=== PATIENT | female | born 1995 | race Caucasian/White ===

== ENCOUNTER 2019-11-29 06:03 | Inpatient (IN) ==
[2019-11-29] MEDS ORDERED: ONDANSETRON 4 MG/2 ML VIAL IV PRN ×2 (06:19→19:48)
[2019-11-29] MEDS ORDERED: MEPERIDINE 50 MG/1 ML VIAL IV PRN (06:19)
[2019-11-29] MEDS ORDERED: OXYTOCIN/LR 20 UNIT/1,000 ML BAG IV SCH (06:30)
[2019-11-29 06:36] LABS: Basophils # 0.1 10*3/uL (0.0-0.2); Basophils % 0.6 % (0.0-0.8); Eosinophils # 0.2 10*3/uL (0.0-0.87); Eosinophils % 1.7 % (0.00-10.9); Hematocrit 37.4 VOL% (35.7-47.0); Hemoglobin 11.6 GM/DL (12.0-16.0); Immature Granulocytes % 0.6 %; Immature Granulocytes Absolute 0.07 #; Lymphocytes # 3.8 10*3/uL (1.4-4.0); Lymphocytes % 30.4 % (21.3-54.2); Mean Platelet Volume 10.3 FL (9.6-12.0); Neutrophils % 58.7 % (38.7-73.9); Platelet Count 347 T/CUMM (130-400); Red Blood Count 4.56 MC/CUMM (3.8-5.5); Red Cell Distribution Width 14.7 % (9.3-17.3); White Blood Count 12.6 T/CUMM (4-12)
[2019-11-29] MEDS: LACTATED RINGERS 1,000 ML IV SCH ×2 (06:40→14:23)
[2019-11-29 06:53] LABS: Alanine Aminotransferase 17 U/L (13-56); Albumin 2.6 G/DL (3.4-5.0); Alkaline Phosphatase 151 U/L (45-117); Aspartate Amino Transferase 9 U/L (0-37); Bilirubin,Total < 0.39 MG/DL (0.2-1.0); Blood Urea Nitrogen 8 MG/DL (7-18); Estimated Glom Filtration Rate 173 ML/MIN; Glucose 115 MG/DL (74-106); Total Protein 6.7 G/DL (6.4-8.3)
[2019-11-29] MEDS ORDERED: PROMETHAZINE 25 MG/1 ML VIAL IM ONE (07:26)
[2019-11-29] MEDS ORDERED: CITRIC ACID/SODIUM CITRATE 30 ML UDCUP PO ONE (07:26)
[2019-11-29] MEDS ORDERED: hydrOXYzine HCL 25 MG/1 ML VIAL IM PRN (07:26)
[2019-11-29] MEDS ORDERED: diphenhydrAMINE 50 MG/1 ML VIAL IV PRN ×2 (07:26)
[2019-11-29] MEDS ORDERED: ePHEDrine 50 MG/ML AMP IV PRN (07:26)
[2019-11-29] MEDS ORDERED: NALOXONE 0.4 MG/ML VIAL IV PRN (07:26)
[2019-11-29] MEDS ORDERED: LACTATED RINGERS 1,000 ML IV ONE ×2 (07:26→19:39)
[2019-11-29] MEDS ORDERED: FAMOTIDINE 20 MG/2 ML VIAL IV ONE (07:26)
[2019-11-29] MEDS: fentaNYL 2 MCG/ROPIV 0.2% EPID 100 ML EPIDURAL SCH ×2 (08:10→14:38)
[2019-11-29 09:32] LABS: Apearance,Urine CLEAR (Clear); Bacteria,Urine Occasional /HPF (Few); Bilirubin,Urine Negative (Negative); Blood, Urine Small mg/dL (Negative); Glucose,Urine (UA) Negative (Negative); Ketones,Urine Negative (Negative); Mucus,Urine Occasional /LPF (Occasional); Nitrite,Urine Negative (Negative); Protein,Urine 30 MG/DL; RBC,Urine 24 /HPF (0-4); Squamous Epithelial Cell,Urine Occasional /HPF (0-10); Urine Color Yellow (Yellow); Urine Specific Gravity 1.026 (1.001-1.035); Urine Urobilinogen < 2.0 EU/DL (0.2-1.0); WBC,Urine <1 /HPF (0-6)
[2019-11-29] MEDS ORDERED: OXYTOCIN 10 UNIT/ML VIAL ONE (18:01)
[2019-11-29] MEDS ORDERED: OXYTOCIN/LR 30 UNIT/1,000 ML BAG IV ONE (18:02)
[2019-11-29] MEDS ORDERED: OXYTOCIN 10 UNIT/ML VIAL IM ONE (18:02)
[2019-11-29] MEDS ORDERED: CLINDAMYCIN INJ 900 MG in PREMIX 1 EACH IV ONE (18:02)
[2019-11-29] MEDS ORDERED: KETOROLAC 30 MG/1 ML VIAL ONE (19:39)
[2019-11-29] MEDS ORDERED: LIDOCAINE MPF 2% /EPI 20 ML VIAL ONE (19:39)
[2019-11-29] MEDS ORDERED: MIDAZOLAM 2 MG/2 ML VIAL ONE (19:39)
[2019-11-29] MEDS ORDERED: ONDANSETRON 4 MG/2 ML VIAL ONE (19:39)
[2019-11-29] MEDS ORDERED: ESMOLOL 100 MG/10 ML VIAL IV ONE (19:39)
[2019-11-29 19:45] LABS: Cord Arterial Blood HCO3 21.2 MMOL/L
[2019-11-29 19:48] LABS: Cord Venous Blood HCO3 23.9 MMOL/L; Cord Venous Blood PCO2 39.3 MMHG; Cord Venous Blood PO2 41.3
[2019-11-29] MEDS ORDERED: ACETAMINOPHEN 325 MG TABLET PO PRN (19:48)
[2019-11-29] MEDS ORDERED: OXYTOCIN/LR 20 UNIT/1,000 ML BAG IV ONE (19:48)
[2019-11-29] MEDS ORDERED: RHO(D) IMMUNE GLOBULIN 300 MCG SYRINGE IM ONE (19:48)
[2019-11-29] MEDS ORDERED: LACTATED RINGERS 1,000 ML IV SCH (20:00)
[2019-11-29] MEDS: IBUPROFEN 800 MG TABLET PO PRN (20:29)
[2019-11-30] MEDS: CLINDAMYCIN INJ 900 MG in PREMIX 1 EACH IV SCH ×2 (02:30→11:38)
[2019-11-30] MEDS: IBUPROFEN 800 MG TABLET PO PRN ×3 (04:03→20:15)
[2019-11-30] MEDS: SIMETHICONE CHEW 80 MG TABLET PO PRN ×2 (04:04→15:13)
[2019-11-30] MEDS: BENZOCAINE/MENTHOL LOZENGE 18/BOX PO PRN ×2 (04:16→17:23)
[2019-11-30] MEDS ORDERED: MEPERIDINE 25 MG/1 ML VIAL IV ONE (05:19)
[2019-11-30] MEDS ORDERED: MEPERIDINE 25 MG/1 ML VIAL ONE (05:21)
[2019-11-30 05:56] LABS: Basophils % 0.2 % (0.0-0.8); Eosinophils # 0.1 10*3/uL (0.0-0.87); Eosinophils % 0.5 % (0.00-10.9); Hematocrit 33.4 VOL% (35.7-47.0); Hemoglobin 10.3 GM/DL (12.0-16.0); Immature Granulocytes % 0.4 %; Immature Granulocytes Absolute 0.05 #; Lymphocytes # 1.4 10*3/uL (1.4-4.0); Lymphocytes % 11.6 % (21.3-54.2); Mean Corpuscular HGB Conc 30.8 GM/DL (32-36); Mean Corpuscular Volume 81.1 FL (87-102); Mean Platelet Volume 10.9 FL (9.6-12.0); Monocytes % 8.9 % (1.7-12.7); Neutrophils % 78.4 % (38.7-73.9); Platelet Count 278 T/CUMM (130-400); Red Blood Count 4.12 MC/CUMM (3.8-5.5); Red Cell Distribution Width 14.7 % (9.3-17.3); White Blood Count 12.4 T/CUMM (4-12)
[2019-11-30] MEDS: MULTIVITAMIN (PRENATAL) TABLET PO SCH (08:33)
[2019-11-30] MEDS: DOCUSATE SODIUM 100 MG CAPSULE PO SCH ×2 (08:33→20:15)
[2019-11-30] MEDS: MAGNESIUM HYDROXIDE SUSP 30 ML UDCUP PO PRN ×2 (08:35→20:15)
[2019-11-30] MEDS: oxyCODONE/ACETAMINOPHEN 5-325 MG TABLET PO PRN ×3 (11:31→23:10)
[2019-11-30] MEDS: LORazepam 1 MG TABLET PO PRN ×2 (12:12→17:20)
[2019-11-30] MEDS: KETOROLAC 30 MG/1 ML VIAL IV PRN (15:20)
[2019-11-30 16:01] LABS: Barbiturates Screen,Urine Negative (Negative); Benzodiazepines Screen,Urine Negative (Negative); Cannabinoid Screen,Urine Negative (Negative); Opiate Screen,Urine Negative (Negative); Phencyclidine Screen,Urine Negative (Negative)
[2019-12-01] MEDS: LORazepam 1 MG TABLET PO PRN ×2 (00:40→05:20)
[2019-12-01] MEDS: METOCLOPRAMIDE 10 MG TABLET PO SCH ×2 (00:41→07:15)
[2019-12-01] MEDS: oxyCODONE/ACETAMINOPHEN 5-325 MG TABLET PO PRN ×2 (04:39→11:15)
[2019-12-01] MEDS: IBUPROFEN 800 MG TABLET PO PRN (04:40)
[2019-12-01] MEDS ORDERED: MAGNESIUM CITRATE 300 ML BOTTLE PO PRN (06:30)
[2019-12-01 07:30] VITALS: BP 101/50
[2019-12-01] MEDS: DOCUSATE SODIUM 100 MG CAPSULE PO SCH (09:27)
[2019-12-01] MEDS: MULTIVITAMIN (PRENATAL) TABLET PO SCH ×2 (09:27→09:50)
[2019-12-01] MEDS: KETOROLAC 30 MG/1 ML VIAL IV PRN ×2 (09:50→09:52)
== END 2019-12-01 14:10 | disposition home or self-care (01) | DRG 540 ==
LOC: N.LDOUT 06:03 → N.LD 06:15 → N.OB 22:23
PROVIDERS: ADMIT Obstetrics & Gynecology; ATTEND Obstetrics & Gynecology
PROC: LDCSECT (ICD-10-PCS; 2019-11-29 18:30)

== ENCOUNTER 2019-12-11 18:54 | Observation (INO) ==
[2019-12-11 19:38] LABS: Basophils # 0.1 10*3/uL (0.0-0.2); Basophils % 0.7 % (0.0-0.8); Eosinophils # 0.2 10*3/uL (0.0-0.87); Eosinophils % 1.7 % (0.00-10.9); Hematocrit 39.6 VOL% (35.7-47.0); Hemoglobin 12.1 GM/DL (12.0-16.0); Immature Granulocytes % 1.9 %; Immature Granulocytes Absolute 0.25 #; Lymphocytes # 3.6 10*3/uL (1.4-4.0); Lymphocytes % 27.1 % (21.3-54.2); Mean Corpuscular HGB Conc 30.6 GM/DL (32-36); Mean Corpuscular Volume 80.8 FL (87-102); Mean Platelet Volume 9.6 FL (9.6-12.0); Monocytes % 6.3 % (1.7-12.7); Neutrophils % 62.3 % (38.7-73.9); Platelet Count 533 T/CUMM (130-400); Red Cell Distribution Width 14.3 % (9.3-17.3); White Blood Count 13.4 T/CUMM (4-12)
[2019-12-11 19:45] LABS: Alanine Aminotransferase 28 U/L (13-56); Albumin 2.9 G/DL (3.4-5.0); Alkaline Phosphatase 108 U/L (45-117); Aspartate Amino Transferase 20 U/L (0-37); Bilirubin,Total < 0.39 MG/DL (0.2-1.0); Blood Urea Nitrogen 15 MG/DL (7-18); Calcium 8.3 MG/DL (8.5-10.1); Estimated Glom Filtration Rate 148 ML/MIN; Glucose 87 MG/DL (74-106); Osmolality,Calculated 278.4 MOS/KG (273-304); Total Protein 7.2 G/DL (6.4-8.3)
[2019-12-11] MEDS ORDERED: HYDROmorphone 2 MG/1 ML VIAL IV STA (22:40)
[2019-12-11] MEDS ORDERED: ONDANSETRON 4 MG/2 ML VIAL IV STA (22:40)
[2019-12-11 23:31] LABS: Apearance,Urine Slightly Hazy (Clear); Barbiturates Screen,Urine Negative (Negative); Benzodiazepines Screen,Urine Negative (Negative); Bilirubin,Urine Negative (Negative); Blood, Urine Large mg/dL (Negative); Cannabinoid Screen,Urine Negative (Negative); Glucose,Urine (UA) Negative (Negative); Ketones,Urine Negative (Negative); Mucus,Urine Occasional /LPF (Occasional); Nitrite,Urine Negative (Negative); Opiate Screen,Urine Negative (Negative); Phencyclidine Screen,Urine Negative (Negative); Protein,Urine Negative; RBC,Urine 8 /HPF (0-4); Squamous Epithelial Cell,Urine Occasional /HPF (0-10); Urine Color Yellow (Yellow); Urine Specific Gravity 1.017 (1.001-1.035); Urine Urobilinogen < 2.0 EU/DL (0.2-1.0); WBC,Urine 51 /HPF (0-6)
[2019-12-11] MEDS ORDERED: cefTRIAXone 1,000 MG in SODIUM CHLORIDE 0.9% 100 ML IV STA (23:49)
[2019-12-12] MEDS ORDERED: cefTRIAXone 1,000 MG in SYRINGE 1 EACH IV SCH
[2019-12-12] MEDS ORDERED: SODIUM CHLORIDE 0.9% 1,000 ML IV SCH (01:05)
[2019-12-12] MEDS ORDERED: LACTATED RINGERS 1,000 ML IV SCH (01:05)
[2019-12-12] MEDS ORDERED: MAGNESIUM HYDROXIDE SUSP 30 ML UDCUP PO PRN (01:05)
[2019-12-12] MEDS ORDERED: ACETAMINOPHEN 325 MG TABLET PO PRN (01:05)
[2019-12-12] MEDS ORDERED: ONDANSETRON 4 MG/2 ML VIAL IV PRN (01:05)
[2019-12-12] MEDS ORDERED: BISACODYL 10 MG SUPP RECTAL PRN (01:05)
[2019-12-12] MEDS ORDERED: IBUPROFEN 800 MG TABLET PO PRN (01:05)
[2019-12-12 02:45] VITALS: BP 126/82
[2019-12-12] MEDS ORDERED: DOCUSATE SODIUM 100 MG CAPSULE PO SCH (09:00)
[2019-12-13] MEDS ORDERED: cefTRIAXone 1,000 MG in SYRINGE 1 EACH IV SCH
== END 2019-12-12 04:01 | disposition left against medical advice (07) ==
LOC: N.EDINP 18:54 → N.ED 18:54 → N.EDINP 12-12 00:55 → N.3E 12-12 01:05
PROVIDERS: ADMIT Obstetrics & Gynecology; ATTEND Obstetrics & Gynecology

== ENCOUNTER 2022-04-28 09:45 | Inpatient (IN) ==
[2022-04-28] MEDS ORDERED: METHYLERGONOVINE 0.2 MG/1 ML AMP IM PRN (10:00)
[2022-04-28] MEDS ORDERED: miSOPROStoL 200 MCG TABLET RECTAL PRN (10:00)
[2022-04-28] MEDS ORDERED: CARBOPROST TROMETHAMINE 250 MCG/ML AMP IM PRN (10:00)
[2022-04-28] MEDS ORDERED: TRANEXAMIC ACID 1,000 MG in SODIUM CHLORIDE 0.9% 100 ML IV PRN (10:00)
[2022-04-28] MEDS ORDERED: LACTATED RINGERS 1,000 ML IV SCH ×2 (10:00→14:30)
[2022-04-28] MEDS ORDERED: OXYTOCIN/LR 20 UNIT/1,000 ML BAG IV ONE ×2 (10:00→14:28)
[2022-04-28] MEDS ORDERED: CITRIC ACID/SODIUM CITRATE 30 ML UDCUP PO PRN (10:00)
[2022-04-28] MEDS ORDERED: CLINDAMYCIN INJ 900 MG/50 ML PREMIX IV ONE (10:00)
[2022-04-28] MEDS ORDERED: FAMOTIDINE 20 MG/2 ML VIAL IV PRN (10:00)
[2022-04-28] MEDS ORDERED: OXYTOCIN 10 UNIT/ML VIAL IM PRN (10:02)
[2022-04-28] MEDS ORDERED: OXYTOCIN/LR 30 UNIT/1,000 ML BAG IV PRN (10:02)
[2022-04-28] MEDS ORDERED: LACTATED RINGERS 1,000 ML IV ONE (10:03)
[2022-04-28 10:41] LABS: Basophils % 0.3 % (0.0-0.8); Eosinophils # 0.1 10*3/uL (0.0-0.87); Eosinophils % 0.5 % (0.00-10.9); Hematocrit 35.7 VOL% (35.7-47.0); Immature Granulocytes % 0.5 %; Immature Granulocytes Absolute 0.06 #; Lymphocytes # 2.3 10*3/uL (1.4-4.0); Lymphocytes % 21.4 % (21.3-54.2); Mean Corpuscular HGB Conc 30.8 GM/DL (32-36); Mean Corpuscular Volume 77.1 FL (87-102); Mean Platelet Volume 10.4 FL (9.6-12.0); Monocytes # 0.9 10*3/uL (0.11-0.8); Monocytes % 8.2 % (1.7-12.7); Neutrophils % 69.1 % (38.7-73.9); Platelet Count 246 T/CUMM (130-400); Red Blood Count 4.63 MC/CUMM (3.8-5.5); Red Cell Distribution Width 14.3 % (9.3-17.3); White Blood Count 10.9 T/CUMM (4-12)
[2022-04-28 11:05] LABS: Alanine Aminotransferase 16 U/L (13-56); Albumin 2.5 G/DL (3.4-5.0); Alkaline Phosphatase 109 U/L (45-117); Aspartate Amino Transferase 12 U/L (0-37); Bilirubin,Total < 0.39 MG/DL (0.20-1.00); Blood Urea Nitrogen 11 MG/DL (7-18); Calcium 8.6 MG/DL (8.5-10.1); Carbon Dioxide 24 MMOL/L (21-32); Chloride 108 MMOL/L (98-107); Glucose 96 MG/DL (74-106); Osmolality,Calculated 273.7 MOS/KG (273-304); Sodium 138 MMOL/L (136-145); Total Protein 6.7 G/DL (6.4-8.2)
[2022-04-28] MEDS ORDERED: buprenorphine HCL 0.3 MG/ML VIAL ONE (13:19)
[2022-04-28] MEDS ORDERED: BUPIVACAINE SPINAL 0.75% 2 ML AMP SPINAL ONE (13:19)
[2022-04-28] MEDS ORDERED: ONDANSETRON 4 MG/2 ML VIAL ONE (13:19)
[2022-04-28] MEDS ORDERED: PHENYLEPHRINE 1 MG/10 ML SYRINGE IV ONE (13:50)
[2022-04-28] MEDS ORDERED: MIDAZOLAM 2 MG/2 ML VIAL ONE (13:57)
[2022-04-28] MEDS ORDERED: LIDOCAINE 2% 5 ML VIAL ONE (14:08)
[2022-04-28] MEDS ORDERED: propofoL 200 MG/20 ML VIAL IV ONE (14:08)
[2022-04-28 14:22] LABS: Cord Venous Blood HCO3 23.3 MMOL/L; Cord Venous Blood PCO2 59.1 MMHG; Cord Venous Blood PO2 < 17
[2022-04-28] MEDS ORDERED: MAGNESIUM HYDROXIDE SUSP 30 ML UDCUP PO PRN (14:28)
[2022-04-28] MEDS ORDERED: ONDANSETRON 4 MG/2 ML VIAL IV PRN (14:28)
[2022-04-28] MEDS ORDERED: ACETAMINOPHEN 325 MG TABLET PO PRN (14:28)
[2022-04-28] MEDS ORDERED: RHO(D) IMMUNE GLOBULIN 300 MCG SYRINGE IM ONE (14:28)
[2022-04-28 14:51] LABS: Mucus,Urine Occasional /LPF (Occasional); RBC,Urine 1 /HPF (0-4); Squamous Epithelial Cell,Urine Occasional /HPF (0-10)
[2022-04-28 14:54] LABS: Bilirubin,Urine Negative (Negative); Blood, Urine Negative (Negative); Glucose,Urine (UA) Negative (Negative); Ketones,Urine Negative (Negative); Nitrite,Urine Negative (Negative); Protein,Urine Trace mg/dL (Negative); Urine Appearance Clear (Clear); Urine Color Yellow (Yellow); Urine Specific Gravity >= 1.030 (1.001-1.035); Urine Urobilinogen 0.2 eU/dL (<2.0); Urine pH 6.5 (4.5-8.0)
[2022-04-28] MEDS ORDERED: ACETAMINOPHEN 500 MG TABLET PO PRN (15:00)
[2022-04-28] MEDS: KETOROLAC 30 MG/1 ML VIAL IV PRN ×2 (15:04→22:37)
[2022-04-28] MEDS: IBUPROFEN 800 MG TABLET PO PRN (15:54)
[2022-04-28] MEDS ORDERED: MORPHINE 2 MG/1 ML SYRINGE IV ONE (17:30)
[2022-04-28] MEDS ORDERED: SERTRALINE 50 MG TABLET PO SCH (21:00)
[2022-04-28] MEDS ORDERED: atenoloL 25 MG TABLET PO SCH (21:00)
[2022-04-28] MEDS: oxyCODONE/ACETAMINOPHEN 5-325 MG TABLET PO PRN (21:07)
[2022-04-28] MEDS: SIMETHICONE CHEW 80 MG TABLET PO PRN (22:33)
[2022-04-28] MEDS: CLINDAMYCIN INJ 900 MG/50 ML PREMIX IV SCH (22:43)
[2022-04-28 22:49] LABS: Basophils % 0.2 % (0.0-0.8); Eosinophils % 0.4 % (0.00-10.9); Hematocrit 32.1 VOL% (35.7-47.0); Hemoglobin 9.8 GM/DL (12.0-16.0); Immature Granulocytes % 0.3 %; Immature Granulocytes Absolute 0.03 #; Lymphocytes % 21.6 % (21.3-54.2); Mean Corpuscular HGB Conc 30.5 GM/DL (32-36); Mean Corpuscular Volume 77.5 FL (87-102); Monocytes # 0.8 10*3/uL (0.11-0.8); Monocytes % 9.1 % (1.7-12.7); Neutrophils % 68.4 % (38.7-73.9); Platelet Count 201 T/CUMM (130-400); Red Blood Count 4.14 MC/CUMM (3.8-5.5); Red Cell Distribution Width 14.3 % (9.3-17.3); White Blood Count 9.1 T/CUMM (4-12)
[2022-04-29] MEDS: DOCUSATE SODIUM 100 MG CAPSULE PO SCH ×3 (00:05→22:48)
[2022-04-29] MEDS: atenoloL 25 MG TABLET PO SCH ×2 (01:43→10:45)
[2022-04-29] MEDS: oxyCODONE/ACETAMINOPHEN 5-325 MG TABLET PO PRN ×4 (03:08→22:49)
[2022-04-29 05:16] LABS: Basophils % 0.3 % (0.0-0.8); Eosinophils # 0.1 10*3/uL (0.0-0.87); Hematocrit 31.1 VOL% (35.7-47.0); Hemoglobin 9.4 GM/DL (12.0-16.0); Immature Granulocytes % 0.3 %; Immature Granulocytes Absolute 0.03 #; Lymphocytes # 2.4 10*3/uL (1.4-4.0); Lymphocytes % 26.6 % (21.3-54.2); Mean Corpuscular HGB Conc 30.2 GM/DL (32-36); Mean Corpuscular Volume 79.1 FL (87-102); Mean Platelet Volume 10.6 FL (9.6-12.0); Monocytes # 1.1 10*3/uL (0.11-0.8); Neutrophils % 59.8 % (38.7-73.9); Platelet Count 188 T/CUMM (130-400); Red Blood Count 3.93 MC/CUMM (3.8-5.5); Red Cell Distribution Width 14.2 % (9.3-17.3); White Blood Count 8.9 T/CUMM (4-12)
[2022-04-29] MEDS: CLINDAMYCIN INJ 900 MG/50 ML PREMIX IV SCH (05:46)
[2022-04-29] MEDS: KETOROLAC 30 MG/1 ML VIAL IV PRN (06:21)
[2022-04-29] MEDS: SIMETHICONE CHEW 80 MG TABLET PO PRN ×2 (09:33→18:00)
[2022-04-29] MEDS: MULTIVITAMIN (PRENATAL) TABLET PO SCH (09:33)
[2022-04-29] MEDS: SERTRALINE 50 MG TABLET PO SCH (09:33)
[2022-04-29] MEDS: METOCLOPRAMIDE 10 MG TABLET PO SCH ×2 (09:33→18:00)
[2022-04-29] MEDS: IBUPROFEN 800 MG TABLET PO PRN (12:54)
[2022-04-29] MEDS ORDERED: atenoloL 25 MG TABLET PO SCH (21:00)
[2022-04-30] MEDS: atenoloL 25 MG TABLET PO SCH ×2 (01:05→10:15)
[2022-04-30] MEDS: METOCLOPRAMIDE 10 MG TABLET PO SCH ×2 (01:06→12:34)
[2022-04-30] MEDS: SIMETHICONE CHEW 80 MG TABLET PO PRN (01:18)
[2022-04-30] MEDS: IBUPROFEN 800 MG TABLET PO PRN (01:18)
[2022-04-30] MEDS: oxyCODONE/ACETAMINOPHEN 5-325 MG TABLET PO PRN ×2 (04:34→10:14)
[2022-04-30 07:14] VITALS: BP 121/61
[2022-04-30] MEDS: MULTIVITAMIN (PRENATAL) TABLET PO SCH (10:14)
[2022-04-30] MEDS: DOCUSATE SODIUM 100 MG CAPSULE PO SCH (10:14)
[2022-04-30] MEDS: SERTRALINE 50 MG TABLET PO SCH (10:14)
== END 2022-04-30 11:45 | disposition home or self-care (01) | DRG 540 ==
LOC: N.LD 09:45 → N.OB 17:00
PROVIDERS: ADMIT Obstetrics & Gynecology; ATTEND Obstetrics & Gynecology
PROC: LDCSECT (ICD-10-PCS; 2022-04-28 13:20)